=== PATIENT | male | born 1990 | race Caucasian/White ===

== ENCOUNTER 2018-12-14 18:29 | Emergency (ER) | payer BC, OTHER ==
[~2018-12-14] VITALS: Ht 182.9 cm; Wt 121.3 kg
[~2018-12-14 18:29] MED LIST: AMBI5TAB; BACL10TA2 OR; COLA100C2 OR; CYMB1CAP5 OR; MAGN500T2 OR; NEUR100C OR; NEUR300C OR; SOLODYN OR; TRAM100T OR; TRAM50TA2 OR; VIT D 2000 OR; savella PO; suboxone SL
[2018-12-14 19:01] LABS: BASO % 0.4 % (0.0-1.0); EOS # 0.4 10^3/uL (0.0-0.50); HEMATOCRIT 43.6 % (42.0-52.0); HEMOGLOBIN 14.1 g/dl (13.5-17.5); LYMPH # 2.9 10^3/uL (1.5-6.5); LYMPH % 27.3 % (24.0-44.0); MEAN CORPUSCULAR HEMOGLOBIN 27.1 pg (27.0-33.0); MEAN CORPUSCULAR HGB CONC 32.3 g/dl (32.0-36.5); MEAN CORPUSCULAR VOLUME 83.7 fl (80.0-96.0); MONO % 9.4 % (0.0-5.0); NEUTROPHILS # 6.1 10^3/uL (1.8-7.7); NEUTROPHILS % 58.7 % (36.0-66.0); PLATELET COUNT, AUTOMATED 329 10^3/uL (150-450); RED BLOOD COUNT 5.21 10^6/uL (4.30-6.10); WHITE BLOOD COUNT 10.4 10^3/uL (4.0-10.0)
[2018-12-14] MEDS ORDERED: CYCL10TA PO (19:04)
[2018-12-14] MEDS ORDERED: TRAM1CAP17 PO (19:04)
[2018-12-14 19:36] LABS: ALBUMIN 3.1 GM/DL (3.2-5.2); ALT/SGPT 44 U/L (12-78); AMYLASE 24 U/L (25-115); BILIRUBIN,DIRECT 0.1 MG/DL (0.0-0.2); BILIRUBIN,TOTAL 0.3 MG/DL (0.2-1.0); BLOOD UREA NITROGEN 11 MG/DL (7-18); CALCIUM LEVEL 8.6 MG/DL (8.5-10.1); CARBON DIOXIDE LEVEL 31 MEQ/L (21-32); CHLORIDE LEVEL 101 MEQ/L (98-107); CREATININE FOR GFR 0.96 MG/DL (0.70-1.30); GLOMERULAR FILTRATION RATE > 60.0 (>60); GLUCOSE, FASTING 79 MG/DL (70-100); LIPASE 118 U/L (73-393); SODIUM LEVEL 140 MEQ/L (136-145); TOTAL PROTEIN 7.2 GM/DL (6.4-8.2)
--- NOTE | 2018-12-14 21:06 | REPVR ---
EXAM: CT Abdomen and Pelvis Without Contrast EXAM DATE/TIME: 12/14/2018 7:54 PM CLINICAL HISTORY: 28 years old, male; Other: R/O kidney stone; Additional info: RO kidney stone TECHNIQUE: Imaging protocol: Axial computed tomography images of the abdomen and pelvis without contrast. Coronal and sagittal reformatted images were created and reviewed. Radiation optimization: All CT scans at this facility use at least one of these dose optimization techniques: automated exposure control; mA and/or kV adjustment per patient size (includes targeted exams where dose is matched to clinical indication); or iterative reconstruction. COMPARISON: No relevant prior studies available. FINDINGS: Lung bases:3 mm groundglass nodule right middle lobe (series 204 image 3).3 mm pleural based nodule left lower lobe (series 204 image 15). Scarring in the lingula. Liver: The liver is low in density. The liver measures 21.5 cm in craniocaudal span. Gallbladder and bile ducts: Gallstones noted in the fundus of the gallbladder. Pancreas: Normal. No ductal dilation. Spleen: Normal. No splenomegaly. Adrenals: Normal. No mass. Kidneys and ureters: Normal. No hydronephrosis. Stomach and bowel: Clip noted at the base of the cecum. No abnormally dilated bowel loops. Moderate amount of stool seen throughout the colon. Appendix: Not seen as a separate structure.. Intraperitoneal space: Normal. No free air. No significant fluid collection. Vasculature: Normal. No abdominal aortic aneurysm. Lymph nodes: Normal. No enlarged lymph nodes. Bladder: Unremarkable as visualized. Reproductive: Unremarkable as visualized. Bones/joints: No acute fracture. No dislocation. Soft tissues: Unremarkable. IMPRESSION: 1. No acute findings. No renal, ureteral or bladder calculi. No hydronephrosis or hydroureter. 2. Cholelithiasis. 3. Hepatic steatosis. 4. 2 pulmonary nodules. If patient does not have known cancer, follow up should be based on clinical information because of the low risk of cancer in this age group. (Casey et al., Fleischner Society, 2017) Electronically signed by: Corrina Topete On 12/14/2018 21:06:37 PM
[2018-12-14 21:49] VITALS: BP 119/72
--- NOTE | 2018-12-15 12:51 | ED PDOC ---
Post-Departure Follow-Up jessica lenz faxed formal report of ct abd/p for fu Inga Dutta MD Dec 15, 2018 12:51
[2018-12-22] MEDS ORDERED: medical marijuana INH (13:18)
== END 2018-12-14 21:51 | disposition home or self-care (01) ==
LOC: M ED 18:29
DX: K80.51 Calculus of bile duct without cholangitis or cholecystitis with obstruction (principal); K76.0 Fatty (change of) liver, not elsewhere classified; R31.9 Hematuria, unspecified; R91.8 Other nonspecific abnormal finding of lung field; F12.90 Cannabis use, unspecified, uncomplicated; Z79.891 Long term (current) use of opiate analgesic; Z79.899 Other long term (current) drug therapy

== ENCOUNTER → 2018-12-24 | Outpatient (CLI) | payer OTHER ==
[~2018-12-24] MED LIST changes: +CYCL10TA PO; +TRAM1CAP17 PO; +medical marijuana INH
--- NOTE | 2018-12-24 18:15 | REP ---
Clinical: Pulmonary nodule. Technique: Axial noncontrast images from the thoracic inlet to the upper abdomen with coronal and sagittal re-formations. Comparison: None. Findings: Mild reticulonodular area of infiltrate involves the left lower lobe nodules measuring up to 8 mm. Previously identified subtle 3 mm ground-glass nodule in the right middle lobe has resolved. No focal consolidation. No effusion. No pneumothorax. Tracheobronchial tree is patent. No obvious adenopathy. Mediastinum demonstrates normal thoracic aorta, pulmonary vasculature and heart/pericardium. Surrounding musculoskeletal structures are intact. Limited upper abdomen demonstrates normal bilateral adrenal glands. Impression: A mild area of reticulonodular infiltrate is appreciated involving the mid to apical left lower lobe with discrete nodules measuring up to 8 mm. Findings may reflect an acute pneumonic process and correlation with physical examination and 3-month follow-up may be warranted to evaluate for resolution. Electronically Signed by Brian Scott MD 12/24/2018 06:06 P
== END ==
LOC: M RAD 16:30
PROVIDERS: ATTEND Nurse Practitioner Adult Health
DX: R91.8 Other nonspecific abnormal finding of lung field (principal)

== ENCOUNTER 2018-12-29 08:12 | Day surgery (SDC) | payer OTHER ==
[~2018-12-29] VITALS: Ht 182.9 cm; Wt 116.1 kg
[~2018-12-29 08:12] MED LIST changes: +BUPIVACAINE/EPIN 0.25% 30 ML VIAL As Ordered ONE; +LR 1,000 ML IV ONE
[2018-12-29] MEDS ORDERED: MIDAZOLAM INJ 2 MG/2 ML VIAL (J2250) As Ordered ONE (10:01)
[2018-12-29] MEDS ORDERED: fentaNYL 250 MCG/5 ML INJECTION (J3010) As Ordered ONE (10:01)
[2018-12-29] MEDS ORDERED: ONDANSETRON 4MG/2ML VIAL (J2405) As Ordered ONE (10:01)
[2018-12-29] MEDS ORDERED: KETOROLAC 60 MG/2 ML VIAL (J1885) As Ordered ONE (10:01)
[2018-12-29] MEDS ORDERED: METOCLOPRAMIDE INJ 10MG/2ML VIAL (J2765) As Ordered ONE (10:01)
[2018-12-29] MEDS ORDERED: LIDOCAINE 2% INJ 100 MG/5 ML SDV (FOR ANES.) As Ordered ONE (10:01)
[2018-12-29] MEDS ORDERED: dexameTHASONE 4 MG/ML 1ML VIAL (J1100) As Ordered ONE (10:01)
[2018-12-29] MEDS ORDERED: SUGAMMADEX SODIUM 500 MG/5 ML VIAL (BRIDION) As Ordered ONE (10:01)
[2018-12-29] MEDS ORDERED: PROPOFOL 200 MG/20 ML VIAL As Ordered ONE ×2 (10:01→10:12)
[2018-12-29] MEDS ORDERED: ROCURONIUM BROMIDE 50 MG/5 ML VIAL As Ordered ONE (10:01)
[2018-12-29] MEDS ORDERED: PHENYLephrine HCL 500 MCG/5 ML (100MCG/ML) SYRINGE (J2370) As Ordered ONE (10:11)
[2018-12-29] MEDS ORDERED: ACETAMINOPHEN 1000MG 100ML IV BTL (OFIRMEV) (J0131 PER 10MG) As Ordered ONE (10:23)
[2018-12-29] MEDS ORDERED: PERCOCET 5MG/325MG TAB As Ordered ONE (11:11)
--- NOTE | 2018-12-29 11:12 | RO ---
DATE OF PROCEDURE: 12/29/2018 PREOPERATIVE DIAGNOSIS: Symptomatic cholelithiasis. POSTOPERATIVE DIAGNOSIS: Symptomatic cholelithiasis. PROCEDURE: Laparoscopic cholecystectomy. SURGEON: Deni Ya DO ASSIST: None. ANESTHESIA: General. ESTIMATED BLOOD LOSS: 5 mL. COMPLICATIONS: None. INDICATIONS FOR PROCEDURE: Patient is a 28-year-old male who presented with right upper quadrant abdominal pain, found have symptomatic cholelithiasis. Recommendation was to proceed with laparoscopic possible open cholecystectomy. Risks and benefits of the procedure not limited but including bleeding, infection, hernia formation, damage to surrounding structures and need for further surgery. He understood and signed consent. PROCEDURE: The patient was brought back to operating room 3. After sufficient sedation the abdomen was sterilely prepped and draped. Next, a time out was done to confirm proper patient and proper procedure. Following that, an 11 mm incision made subxiphoid and a Veress needle was inserted to insufflate the abdomen. Once the abdomen was insufflated to 15 mmHg, a 5 mm supraumbilical midline incision made and a 5 mm OptiView port was used to gain access. Once the abdomen entered, Veress needle site was examined. There was signs of any injury. Veress needle was removed. Two more 5 mm ports were placed the right upper quadrant. The Veress needle was replaced with the 11 mm port. Gallbladder was elevated up towards the right shoulder. The cystic duct and cystic artery were carefully dissected free using a combination of blunt and sharp dissection. Once they are both clearly identified, they are both doubly clipped and cut. The gallbladder was then removed from gallbladder fossa using electrocautery and brought out through the subxiphoid port site in an 11 mm EndoCatch bag. The abdomen was then desufflated. Skin incisions closed #4-0 Vicryl subcuticular sutures. The abdomen was cleaned and dried. Steri-Strips, 4x4 and tape were applied thus ending procedure.
[2018-12-29] MEDS ORDERED: NORCO, ANEXSIA 5/325MG TABLET (HYDROcodone/ACETAMINOPHEN) PO PRN (11:30)
[2018-12-29] MEDS ORDERED: MORPHINE 10 MG/ML 1ML VIAL (J2270) IV PRN (11:30)
[2018-12-29] MEDS ORDERED: PERCOCET 5MG/325MG TAB PO PRN (11:30)
[2018-12-29] MEDS ORDERED: LR 1,000 ML IV SCH (11:30)
[2018-12-29] MEDS ORDERED: METOCLOPRAMIDE INJ 10MG/2ML VIAL (J2765) IV PRN (11:30)
[2018-12-29] MEDS ORDERED: ONDANSETRON 4MG/2ML VIAL (J2405) IV PRN (11:30)
[2018-12-29] MEDS ORDERED: fentaNYL 100 MCG/2 ML INJECTION (J3010) IV PRN (11:30)
[2018-12-29 12:40] VITALS: BP 138/79
== END 2018-12-29 12:50 | disposition home or self-care (01) ==
LOC: M SDC 08:12
PROVIDERS: ATTEND Surgery
DX: K80.10 Calculus of gallbladder with chronic cholecystitis without obstruction (principal); K76.0 Fatty (change of) liver, not elsewhere classified; G89.29 Other chronic pain; F12.90 Cannabis use, unspecified, uncomplicated; F32.9 Major depressive disorder, single episode, unspecified; R91.8 Other nonspecific abnormal finding of lung field
CPT/HCPCS: 47562; 88304; J0131; J1100; J1885; J2250; J2370; J2405; J2765; J3010

== ENCOUNTER → 2019-01-06 | Outpatient (REF) | payer OTHER ==
[~2019-01-06] MED LIST changes: -BUPIVACAINE/EPIN 0.25% 30 ML VIAL As Ordered ONE; -LR 1,000 ML IV ONE
[2019-01-06 14:08] LABS: APPEARANCE, URINE CLEAR (CLEAR); BACTERIA, URINE AUTO NEGATIVE (NEGATIVE); BILIRUBIN, URINE AUTO NEGATIVE (NEGATIVE); BLOOD, URINE BLOOD 1+ (NEGATIVE); COLOR, URINE YELLOW (YELLOW); GLUCOSE, URINE (UA) AUTO NEGATIVE (NEGATIVE); KETONE, URINE AUTO NEGATIVE (NEGATIVE); LEUKOCYTE ESTERASE, URINE AUTO NEGATIVE (NEGATIVE); MUCUS, URINE SMALL (NEGATIVE); NITRITE, URINE AUTO NEGATIVE (NEGATIVE); PROTEIN, URINE AUTO NEGATIVE (NEGATIVE); RBC, URINE AUTO 1 /HPF (0-3); SPECIFIC GRAVITY URINE AUTO 1.019 (1.002-1.035); SQUAMOUS EPITHELIAL CELL UR AU 0 /HPF (0-6); UROBILINOGEN, URINE AUTO 0.2 mg/dL (0.0-2.0); WBC, URINE AUTO 1 /HPF (0-3)
== END ==
LOC: M SMT 13:05
PROVIDERS: ATTEND Urology Pediatric Urology
DX: R33.8 Other retention of urine (principal); R31.29 Other microscopic hematuria

== ENCOUNTER → 2019-06-23 | Outpatient (REF) | payer OTHER | LOC: M SFHCDERM 15:00 | PROVIDERS: ATTEND Dermatology | DX: Z53.9 Procedure and treatment not carried out, unspecified reason (principal) ==

== ENCOUNTER → 2019-07-13 | Outpatient (REF) | payer OTHER ==
[2019-07-13 18:21] LABS: ALT/SGPT 31 U/L (12-78); BILIRUBIN,TOTAL 0.5 MG/DL (0.2-1.0); BLOOD UREA NITROGEN 11 MG/DL (7-18); CALCIUM LEVEL 8.9 MG/DL (8.5-10.1); CARBON DIOXIDE LEVEL 31 MEQ/L (21-32); CHLORIDE LEVEL 105 MEQ/L (98-107); CHOLESTEROL LEVEL 121 MG/DL (<200); CREATININE FOR GFR 0.84 MG/DL (0.70-1.30); GLOMERULAR FILTRATION RATE > 60.0 (>60); GLUCOSE, FASTING 78 MG/DL (70-100); HDL CHOLESTEROL 37 MG/DL (>40); LDL CHOLESTEROL 63 MG/DL (<100); NON-HDL-C 84 MG/DL; SODIUM LEVEL 140 MEQ/L (136-145); TOTAL PROTEIN 7.9 GM/DL (6.4-8.2); TRIGLYCERIDES LEVEL 107 MG/DL (<150)
[2019-07-13 19:43] LABS: HEMOGLOBIN A1c 5.7 %
== END ==
LOC: M SFHCPLAZ 14:44
PROVIDERS: ATTEND Nurse Practitioner Adult Health
DX: Z00.00 Encounter for general adult medical examination without abnormal findings (principal); Z13.220 Encounter for screening for lipoid disorders; Z83.3 Family history of diabetes mellitus

== ENCOUNTER → 2019-07-13 | Outpatient (CLI) | payer OTHER ==
--- NOTE | 2019-07-14 03:54 | REP ---
Clinical: Follow up abnormal lung findings. Technique: Axial noncontrast images from the thoracic inlet to the upper abdomen with coronal and sagittal re-formations. Comparison: 12/24/2018. Findings: The bilateral lung nur are well-aerated, relatively symmetric and clear. The previously noted opacity and nodular changes in the left lower lobe have completely resolved. No acute consolidation, nodule or mass lesion noted. No effusion. No pneumothorax. Tracheobronchial tree is patent. No adenopathy. Mediastinum including thoracic aorta, pulmonary vasculature and heart/pericardium normal. Surrounding musculoskeletal structures are intact. Limited upper abdomen demonstrates normal bilateral adrenal glands and evidence of prior cholecystectomy. Impression: Normal chest CT. Previously noted left lower lobe infiltrate has resolved. Electronically Signed by Brian Scott MD 07/14/2019 03:46 A
== END ==
LOC: M RAD 13:06
PROVIDERS: ATTEND Internal Medicine Pulmonary Disease
DX: R91.8 Other nonspecific abnormal finding of lung field (principal)

== ENCOUNTER 2019-08-05 09:52 | Emergency (ER) | payer OTHER ==
[~2019-08-05] VITALS: Ht 182.9 cm; Wt 113.3 kg
[2019-08-05] MEDS ORDERED: NAPR250T4 PO (10:02)
[2019-08-05] MEDS ORDERED: DOXY100C37 PO (10:02)
--- NOTE | 2019-08-05 14:07 | REP ---
LEFT KNEE SERIES: Five views. HISTORY: Pain. FINDINGS: Five views of the left knee show normal bones, joints, and soft tissues. Clothing artifact is seen over the distal thigh. IMPRESSION: Clothing artifact. Otherwise negative left knee radiographs. Electronically Signed by Carlos Alberto Mckeon MD 08/05/2019 04:08 P
[2019-08-05] MEDS ORDERED: ACETAMINOPHEN 650MG ER TAB (TYLENOL ARTHRITIS) PO PRN (14:45)
[2019-08-05] MEDS ORDERED: KETOROLAC 60 MG/2 ML VIAL (J1885) IM ONE (14:45)
[2019-08-05] MEDS ORDERED: KETO10TAB PO (16:01)
[2019-08-05 16:13] VITALS: BP 125/62
== END 2019-08-05 16:15 | disposition home or self-care (01) ==
LOC: M ED 09:52
DX: M54.32 Sciatica, left side (principal); S86.912A Strain of unspecified muscle(s) and tendon(s) at lower leg level, left leg, initial encounter; X58.XXXA Exposure to other specified factors, initial encounter; Z88.8 Allergy status to other drugs, medicaments and biological substances
CPT/HCPCS: 73564; 96372; 99283; J1885

== ENCOUNTER → 2019-08-25 | Outpatient (CLI) | payer OTHER ==
[~2019-08-25] MED LIST changes: +DOXY100C37 PO; +KETO10TAB PO; +NAPR250T4 PO
--- NOTE | 2019-08-25 16:07 | REPPI ---
LUMBOSACRAL SPINE SERIES: Lumbosacral spine series is performed with five views obtained. The lateral views are limited due to mild obliquity. However, no compression fracture or malalignment is seen. There is mild diffuse spurring of the lumbar vertebral bodies. There is mild disc space narrowing and subchondral sclerosis at all levels. Posterior elements are intact. Metallic clips are seen in the right abdomen. IMPRESSION: Mild diffuse degenerative changes. Electronically Signed by Deni Garcia MD 08/25/2019 08:01 P
== END ==
LOC: M PLAIMG 14:55
PROVIDERS: ATTEND Nurse Practitioner Adult Health
DX: M54.5 Low back pain (principal)

== ENCOUNTER → 2020-01-12 | Outpatient (REF) | payer OTHER ==
[~2020-01-12] MED LIST changes: +CYCL-707 PO; -CYCL10TA PO
[2020-01-12 15:43] LABS: ALBUMIN 3.9 GM/DL (3.2-5.2); ALT/SGPT 17 U/L (12-78); BILIRUBIN,TOTAL 0.5 MG/DL (0.2-1.0); BLOOD UREA NITROGEN 11 MG/DL (7-18); C REACTIVE PROTEIN QUANTITATIV 1.55 MG/DL (0.00-0.30); CALCIUM LEVEL 9.1 MG/DL (8.5-10.1); CARBON DIOXIDE LEVEL 32 MEQ/L (21-32); CHLORIDE LEVEL 107 MEQ/L (98-107); CREATININE FOR GFR 0.79 MG/DL (0.70-1.30); GLOMERULAR FILTRATION RATE > 60.0 (>60); GLUCOSE, FASTING 82 MG/DL (70-100); POTASSIUM SERUM 4.3 MEQ/L (3.5-5.1); RHEUMATOID FACTOR QUANT < 10.0 IU/ML (<15.0); SODIUM LEVEL 141 MEQ/L (136-145); THYROID STIMULATING HORMONE 0.866 uIU/ML (0.358-3.740); TOTAL PROTEIN 7.7 GM/DL (6.4-8.2)
[2020-02-16 11:39] LABS: DRVV SCREEN 55.9 SEC
[2020-02-16 11:40] LABS: PTT LUPUS TYPE ANTICOAG SCREEN 1.4 (0-1.2)
[2020-02-22 11:07] LABS: HEXAGONAL PHASE PHOSPHOLIPID 12 sec (0-11)
[2020-03-09 09:55] LABS: ANTI SCLERODERMA ANTIBODIES SEE SEPARATE REPORT; ANTINUCLEAR ANTIBODIES DIRECT See Separate Report
[2020-03-09 09:56] LABS: CYCLIC CITRULLINATED PEPTIDE See Separate Report UNITS
== END ==
LOC: M PLALAB 15:11
PROVIDERS: ATTEND Nurse Practitioner Adult Health
DX: M25.50 Pain in unspecified joint (principal); Z83.49 Family history of other endocrine, nutritional and metabolic diseases; K76.0 Fatty (change of) liver, not elsewhere classified

== ENCOUNTER → 2020-07-21 | Outpatient (REF) | payer OTHER ==
[2020-07-21 15:59] LABS: ALBUMIN 3.9 GM/DL (3.2-5.2); ALT/SGPT 28 U/L (12-78); BILIRUBIN,TOTAL 0.4 MG/DL (0.2-1.0); BLOOD UREA NITROGEN 13 MG/DL (7-18); CALCIUM LEVEL 9.5 MG/DL (8.5-10.1); CARBON DIOXIDE LEVEL 33 MEQ/L (21-32); CHLORIDE LEVEL 100 MEQ/L (98-107); CREATININE FOR GFR 0.89 MG/DL (0.70-1.30); GLOMERULAR FILTRATION RATE > 60.0 (>60); GLUCOSE, FASTING 93 MG/DL (70-100); SODIUM LEVEL 141 MEQ/L (136-145); TOTAL PROTEIN 7.6 GM/DL (6.4-8.2)
== END ==
LOC: M SFHCPLAZ 14:15
PROVIDERS: ATTEND Nurse Practitioner Adult Health
DX: K76.0 Fatty (change of) liver, not elsewhere classified (principal); Z83.3 Family history of diabetes mellitus; Z83.49 Family history of other endocrine, nutritional and metabolic diseases

== ENCOUNTER → 2021-04-07 | Outpatient (CLI) | payer OTHER ==
[~2021-04-07] MED LIST changes: -DOXY100C37 PO; +DOXY1CAP62 PO; +NAPR-849 PO; -NAPR250T4 PO
[2021-04-07 16:58] LABS: HEPATITIS A ANTIBODY IGM NEGATIVE (NEGATIVE); HEPATITIS B CORE ANTIBODY IGM NEGATIVE (NEGATIVE); HEPATITIS B SURFACE ANTIBODY POSITIVE (POSITIVE); HEPATITIS B SURFACE ANTIGEN NEGATIVE (NEGATIVE); HEPATITIS C VIRUS ABY INDEX 0.1 INDEX (<0.8); HIV 1&2 SCREEN CENTAUR NEGATIVE (NEGATIVE)
== END ==
LOC: M LAB 14:07
PROVIDERS: ATTEND Dermatology
DX: L73.2 Hidradenitis suppurativa (principal)

== ENCOUNTER → 2021-08-01 | Outpatient (REF) | payer OTHER ==
[~2021-08-01] MED LIST changes: +DOXY-443 PO; -DOXY1CAP62 PO
== END ==
LOC: M SFHCDERM 12:53
PROVIDERS: ATTEND Nurse Practitioner Adult Health
DX: Z53.9 Procedure and treatment not carried out, unspecified reason (principal); M25.50 Pain in unspecified joint; Z82.61 Family history of arthritis

== ENCOUNTER → 2021-08-02 | Outpatient (CLI) | payer OTHER ==
[2021-08-02 15:51] LABS: HEMATOCRIT 47.6 % (42.0-52.0); HEMOGLOBIN 15.1 g/dl (13.5-17.5); MEAN CORPUSCULAR HEMOGLOBIN 27.7 pg (27.0-33.0); MEAN CORPUSCULAR HGB CONC 31.7 g/dl (32.0-36.5); MEAN CORPUSCULAR VOLUME 87.3 fl (80.0-96.0); PLATELET COUNT, AUTOMATED 310 10^3/uL (150-450); RED BLOOD COUNT 5.45 10^6/uL (4.30-6.10); WHITE BLOOD COUNT 7.2 10^3/uL (4.0-10.0)
[2021-08-02 16:20] LABS: ERYTHROCYTE SEDIMENTATION RATE 22 mm/hr (0-15)
[2021-08-02 16:24] LABS: BLOOD UREA NITROGEN 13 MG/DL (7-18); CARBON DIOXIDE LEVEL 31 MEQ/L (21-32); CHLORIDE LEVEL 106 MEQ/L (98-107); CREATININE FOR GFR 0.92 MG/DL (0.70-1.30); GLOMERULAR FILTRATION RATE > 60.0 (>60); GLUCOSE, FASTING 84 MG/DL (70-100); POTASSIUM SERUM 4.4 MEQ/L (3.5-5.1); SODIUM LEVEL 143 MEQ/L (136-145)
[2021-08-02 16:25] LABS: ALBUMIN 3.7 GM/DL (3.2-5.2); ALT/SGPT 28 U/L (12-78); BILIRUBIN,TOTAL 0.4 MG/DL (0.2-1.0); C REACTIVE PROTEIN QUANTITATIV 2.09 MG/DL (0.00-0.30); CALCIUM LEVEL 8.9 MG/DL (8.5-10.1); CHOLESTEROL LEVEL 121 MG/DL (<200); CHOLESTEROL RISK RATIO 3.102 (<5); COMPLEMENT C3 148 MG/DL (90-180); COMPLEMENT C4 24 MG/DL (10-40); HDL CHOLESTEROL 39 MG/DL (>40); LDL CHOLESTEROL 59 MG/DL (<100); NON-HDL-C 82 MG/DL; RHEUMATOID FACTOR QUANT < 10.0 IU/ML (<15.0); TOTAL PROTEIN 7.5 GM/DL (6.4-8.2); TRIGLYCERIDES LEVEL 115 MG/DL (<150)
[2021-08-02 20:38] LABS: HEMOGLOBIN A1c 5.5 %
== END ==
LOC: M PLALAB 11:29
PROVIDERS: ATTEND Nurse Practitioner Adult Health
DX: Z83.3 Family history of diabetes mellitus (principal); M25.50 Pain in unspecified joint; K76.0 Fatty (change of) liver, not elsewhere classified; L70.0 Acne vulgaris; Z13.220 Encounter for screening for lipoid disorders; Z82.61 Family history of arthritis